=== PATIENT | female | born 1940 | race Caucasian/White ===

== ENCOUNTER 2018-11-07 12:12 | Inpatient (IN) | payer MEDICAID ==
[2018-11-07] MEDS: ACETAMINOPHEN 500 MG TAB PO (14:32)
[2018-11-07 14:46] LABS: ADD MAN DIFF? NO
[2018-11-07 14:48] LABS: WHITE BLOOD COUNT 6.3 10^3/ul (4.8-10.8)
[2018-11-07 14:48] LABS: BASOPHIL # 0.1 10^3/ul (0.0-0.1); BASOPHILS % 0.8 % (0.0-2.0); EOSINOPHILS # 0.1 10^3/ul (0.0-0.5); EOSINOPHILS % 1.4 % (0.0-7.0); HEMATOCRIT 39.4 % (37.0-47.0); HEMOGLOBIN 13.1 g/dl (12.0-16.0); LYMPHOCYTES # 1.6 10^3/ul (0.8-2.9); LYMPHOCYTES % 25.4 % (15.0-51.0); MEAN CORPUSCULAR HEMOGLOBIN 30.5 pg (29.0-33.0); MEAN CORPUSCULAR HGB CONC 33.2 g/dl (32.0-37.0); MEAN CORPUSCULAR VOLUME 91.8 fl (82.0-101.0); MEAN PLATELET VOLUME 10.9 fl (7.4-10.4); MONOCYTE # 0.7 10^3/ul (0.3-0.9); MONOCYTES % 10.8 % (0.0-11.0); NEUTROPHIL # 3.8 10^3/ul (1.6-7.5); NEUTROPHILS % 61.3 % (39.0-77.0); PLATELET COUNT 321 10^3/UL (140-415); RED BLOOD COUNT 4.29 10^6/ul (4.20-5.40); RED CELL DISTRIBUTION WIDTH 16.1 % (11.5-14.5)
[2018-11-07 14:56] LABS: ADD UMIC NO; UR ASCORBIC ACID 20 mg/dL (NEGATIVE); UR BILIRUBIN (Dip) 2+ mg/dL (NEGATIVE); UR BLOOD (Dip) NEGATIVE (NEGATIVE); UR CLARITY CLEAR (CLEAR); UR COLOR AMBER (YELLOW); UR GLUCOSE (Dip) NEGATIVE (NEGATIVE); UR KETONES (Dip) NEGATIVE (NEGATIVE); UR LEUKOCYTE ESTERASE (Dip) NEGATIVE Leu/ul (NEGATIVE); UR NITRITE (Dip) NEGATIVE (NEGATIVE); UR SPECIFIC GRAVITY (Dip) 1.023 (1.003-1.030); UR TOTAL PROTEIN (Dip) NEGATIVE (NEGATIVE); UR UROBILINOGEN (Dip) 2+ mg/dL (NEGATIVE)
[2018-11-07 15:09] LABS: ALANINE AMINOTRANSFERASE 571 IU/L (13-69); ALBUMIN 4.2 g/dl (3.3-4.9); ALBUMIN/GLOBULIN RATIO 0.85; ALKALINE PHOSPHATASE 430 IU/L (42-121); ANION GAP 11 (5-13); ASPARTATE AMINO TRANSFERASE 341 IU/L (15-46); BILIRUBIN,INDIRECT 1.6 mg/dl (0-1.1); BILIRUBIN,TOTAL 8.9 mg/dl (0.2-1.3); BLOOD UREA NITROGEN 21 mg/dl (7-20); CALCIUM 10.3 mg/dl (8.4-10.2); CARBON DIOXIDE 25 mmol/L (21-31); CHLORIDE 102 mmol/L (97-110); CREATININE 0.76 mg/dl (0.44-1.00); GLUCOSE 134 mg/dl (70-220); LIPASE 1408 U/L (23-300); POTASSIUM 4.3 mmol/L (3.5-5.1); SODIUM 138 mmol/L (135-144); TOTAL PROTEIN 9.1 g/dl (6.1-8.1)
[2018-11-07] MEDS ORDERED: hydrALAzine 20 MG INJ IV (19:00)
[2018-11-07] MEDS ORDERED: ACETAMINOPHEN 325 MG TAB PO (19:00)
[2018-11-07] MEDS ORDERED: NACL 0.9% 3 ML SYG IV (19:00)
[2018-11-07] MEDS ORDERED: NITROGLYCERIN (SL) 0.4 MG TAB SL (19:00)
[2018-11-07] MEDS ORDERED: ALBUTEROL/IPRATROPIUM (NEB) 3 ML AMP HHN (19:00)
[2018-11-07] MEDS ORDERED: ONDANSETRON 4 MG INJ IV (19:00)
[2018-11-07] MEDS ORDERED: DOCUSATE SODIUM 100 MG CAP PO (19:00)
[2018-11-07] MEDS ORDERED: morphine 2 MG INJ IV (19:00)
[2018-11-07] MEDS ORDERED: LORAZEPAM 2 MG INJ IV (19:00)
[2018-11-07] MEDS ORDERED: MAGNESIUM HYDROXIDE 30ML CUP PO (19:00)
[2018-11-07 19:33] LABS: INR 0.84; PROTIME 11.6 Sec (11.9-14.9); PT RATIO 0.9
[2018-11-07 19:34] LABS: PARTIAL THROMBOPLASTIN TIME 36.2 Sec (23.0-35.0)
[2018-11-07 19:54] LABS: FREE T4 (FREE THYROXINE) 1.36 ng/dl (0.78-2.44)
[2018-11-07] MEDS: SOD CHLORIDE 0.45% 1,000 ML IV (20:03)
[2018-11-07] MEDS: PIPER-TAZO 3.375 GM IV (PMX) 100 ML IVPB (23:49)
[2018-11-08] MEDS ORDERED: DIPHENHYDRAMINE 25 MG CAP PO (01:00)
[2018-11-08] MEDS: PANTOPRAZOLE (EC) 40 MG TAB PO (05:33)
[2018-11-08] MEDS: HYDROCODONE/APAP (5/325) TAB PO (05:34)
[2018-11-08] MEDS: PIPER-TAZO 3.375 GM IV (PMX) 100 ML IVPB ×3 (05:34→17:37)
[2018-11-08 06:43] LABS: ADD MAN DIFF? NO
[2018-11-08 06:45] LABS: WHITE BLOOD COUNT 7.1 10^3/ul (4.8-10.8)
[2018-11-08 06:45] LABS: BASOPHILS % 0.6 % (0.0-2.0); EOSINOPHILS % 0.6 % (0.0-7.0); HEMATOCRIT 35.3 % (37.0-47.0); LYMPHOCYTES # 0.9 10^3/ul (0.8-2.9); LYMPHOCYTES % 13.3 % (15.0-51.0); MEAN CORPUSCULAR HEMOGLOBIN 30.8 pg (29.0-33.0); MEAN CORPUSCULAR VOLUME 90.7 fl (82.0-101.0); MEAN PLATELET VOLUME 11.6 fl (7.4-10.4); MONOCYTE # 0.4 10^3/ul (0.3-0.9); MONOCYTES % 5.8 % (0.0-11.0); NEUTROPHIL # 5.6 10^3/ul (1.6-7.5); NEUTROPHILS % 79.3 % (39.0-77.0); PLATELET COUNT 286 10^3/UL (140-415); RED BLOOD COUNT 3.89 10^6/ul (4.20-5.40); RED CELL DISTRIBUTION WIDTH 16.3 % (11.5-14.5)
[2018-11-08 07:05] LABS: ALANINE AMINOTRANSFERASE 481 IU/L (13-69); ALBUMIN 3.7 g/dl (3.3-4.9); ALKALINE PHOSPHATASE 417 IU/L (42-121); ANION GAP 11 (5-13); ASPARTATE AMINO TRANSFERASE 285 IU/L (15-46); BILIRUBIN,INDIRECT 1.9 mg/dl (0-1.1); BILIRUBIN,TOTAL 10.8 mg/dl (0.2-1.3); BLOOD UREA NITROGEN 19 mg/dl (7-20); CALCIUM 9.8 mg/dl (8.4-10.2); CARBON DIOXIDE 22 mmol/L (21-31); CHLORIDE 105 mmol/L (97-110); CREATININE 0.72 mg/dl (0.44-1.00); GLUCOSE 126 mg/dl (70-220); MAGNESIUM 2.1 mg/dl (1.7-2.5); PHOSPHORUS 3.9 mg/dl (2.5-4.9); POTASSIUM 4.5 mmol/L (3.5-5.1); SODIUM 138 mmol/L (135-144); TOTAL PROTEIN 7.6 g/dl (6.1-8.1)
[2018-11-08 07:07] LABS: HEMOGLOBIN A1C 5.9 % (0-5.9)
[2018-11-08 07:12] LABS: HDL CHOLESTEROL 33 mg/dl (33-92); LDL CHOLESTEROL,CALCULATED 220 mg/dl; TRIGLYCERIDES 230 mg/dl (0-149)
[2018-11-08 07:12] LABS: CHOLESTEROL 299 mg/dl (100-200)
[2018-11-08] MEDS: SOD CHLORIDE 0.45% 1,000 ML IV ×2 (10:20→11:56)
[2018-11-08 11:45] LABS: CARCINOEMBRYONIC ANTIGEN 5.4 ng/ml (0.0-5.0)
[2018-11-08 12:57] LABS: HAAIG REFLEX REFLEX FILED
[2018-11-08 13:43] LABS: HEPATITIS B SURFACE ANTIGEN NEGATIVE (NEGATIVE)
[2018-11-08 14:01] LABS: HEPATITIS C VIRAL ANTIBODY NEGATIVE (NEGATIVE)
[2018-11-08 14:20] LABS: HEPATITIS B CORE ANTIBODY NEGATIVE (NEGATIVE)
[2018-11-08] MEDS: ACETAMINOPHEN 325 MG TAB PO (15:14)
[2018-11-08] MEDS: INDOMETHACIN 50 MG SUPP PR (17:00)
[2018-11-09] MEDS: PIPER-TAZO 3.375 GM IV (PMX) 100 ML IVPB ×5 (00:16→23:57)
[2018-11-09] MEDS: SOD CHLORIDE 0.45% 1,000 ML IV ×2 (03:35→18:55)
[2018-11-09] MEDS: PANTOPRAZOLE (EC) 40 MG TAB PO (05:32)
[2018-11-09 07:06] LABS: ADD MAN DIFF? NO
[2018-11-09 07:12] LABS: WHITE BLOOD COUNT 7.5 10^3/ul (4.8-10.8)
[2018-11-09 07:12] LABS: BASOPHIL # 0.1 10^3/ul (0.0-0.1); BASOPHILS % 0.7 % (0.0-2.0); EOSINOPHILS # 0.1 10^3/ul (0.0-0.5); EOSINOPHILS % 0.9 % (0.0-7.0); HEMATOCRIT 38.5 % (37.0-47.0); HEMOGLOBIN 12.8 g/dl (12.0-16.0); LYMPHOCYTES # 1.4 10^3/ul (0.8-2.9); LYMPHOCYTES % 19.1 % (15.0-51.0); MEAN CORPUSCULAR HEMOGLOBIN 30.2 pg (29.0-33.0); MEAN CORPUSCULAR HGB CONC 33.2 g/dl (32.0-37.0); MEAN CORPUSCULAR VOLUME 90.8 fl (82.0-101.0); MEAN PLATELET VOLUME 11.6 fl (7.4-10.4); MONOCYTE # 0.5 10^3/ul (0.3-0.9); MONOCYTES % 6.4 % (0.0-11.0); NEUTROPHIL # 5.4 10^3/ul (1.6-7.5); NEUTROPHILS % 72.4 % (39.0-77.0); PLATELET COUNT 338 10^3/UL (140-415); RED BLOOD COUNT 4.24 10^6/ul (4.20-5.40); RED CELL DISTRIBUTION WIDTH 16.5 % (11.5-14.5)
[2018-11-09 07:35] LABS: ANION GAP 15 (5-13); BLOOD UREA NITROGEN 17 mg/dl (7-20); CALCIUM 10.1 mg/dl (8.4-10.2); CARBON DIOXIDE 18 mmol/L (21-31); CHLORIDE 104 mmol/L (97-110); CREATININE 0.82 mg/dl (0.44-1.00); GLUCOSE 97 mg/dl (70-220); POTASSIUM 4.1 mmol/L (3.5-5.1); SODIUM 137 mmol/L (135-144)
[2018-11-09] MEDS ORDERED: IOHEXOL 300MG/ML 30 ML BTL (11:38)
[2018-11-09] MEDS ORDERED: CEFAZOLIN 1 GM INJ (12:24)
[2018-11-09] MEDS ORDERED: ROCURONIUM 50 MG INJ (12:24)
[2018-11-09] MEDS ORDERED: FENTAnyl 50 MCG/ML VIAL (12:24)
[2018-11-09] MEDS ORDERED: PROPOFOL 20 ML (12:24)
[2018-11-09] MEDS ORDERED: MIDAZOLAM 1 MG/ML 2 ML INJ (12:24)
[2018-11-09] MEDS ORDERED: hydrALAzine 20 MG INJ (12:42)
[2018-11-09] MEDS ORDERED: ONDANSETRON 4 MG INJ (12:42)
[2018-11-09] MEDS ORDERED: METOCLOPRAMIDE 10 MG INJ (12:42)
[2018-11-09] MEDS ORDERED: DEXAMETHASONE 4 MG/ML 5 ML INJ (12:42)
[2018-11-09] MEDS ORDERED: SUGAMMADEX SODIUM 200 MG/2 ML VIAL IV (12:55)
[2018-11-09] MEDS ORDERED: ONDANSETRON 4 MG INJ IV (13:00)
[2018-11-09] MEDS ORDERED: MEPERIDINE 25 MG INJ IV (13:00)
[2018-11-09] MEDS ORDERED: METOCLOPRAMIDE 10 MG INJ IV (13:00)
[2018-11-09] MEDS ORDERED: ALBUTEROL 0.083% (NEB) 2.5 MG/3 ML AMP HHN (13:00)
[2018-11-09] MEDS ORDERED: EPHEDrine 25 MG/5 ML SYG IV (13:00)
[2018-11-09] MEDS ORDERED: HYDROmorphONE 1 MG/5 ML IV SYRINGE IV ×2 (13:00)
[2018-11-09] MEDS ORDERED: LABETALOL HCL 20MG INJ IV (13:00)
[2018-11-09] MEDS ORDERED: FENTAnyl 50 MCG/ML VIAL IV ×2 (13:00)
[2018-11-09] MEDS ORDERED: DIPHENHYDRAMINE 50 MG INJ IV (13:00)
[2018-11-09] MEDS ORDERED: hydrALAzine 20 MG INJ IV (13:00)
[2018-11-09] MEDS: BARIUM SULF 2% 450 ML BTL (BERRY SMOOTHIE) PO (13:30)
[2018-11-09] MEDS: ONDANSETRON 4 MG INJ IV (14:15)
[2018-11-10] MEDS: PANTOPRAZOLE (EC) 40 MG TAB PO (06:02)
[2018-11-10] MEDS: PIPER-TAZO 3.375 GM IV (PMX) 100 ML IVPB ×2 (06:02→12:28)
[2018-11-10 07:17] LABS: ADD MAN DIFF? NO
[2018-11-10 07:21] LABS: WHITE BLOOD COUNT 10.6 10^3/ul (4.8-10.8)
[2018-11-10 07:21] LABS: BASOPHILS % 0.1 % (0.0-2.0); HEMATOCRIT 33.1 % (37.0-47.0); HEMOGLOBIN 11.3 g/dl (12.0-16.0); LYMPHOCYTES # 1.1 10^3/ul (0.8-2.9); MEAN CORPUSCULAR HEMOGLOBIN 30.7 pg (29.0-33.0); MEAN CORPUSCULAR HGB CONC 34.1 g/dl (32.0-37.0); MEAN CORPUSCULAR VOLUME 89.9 fl (82.0-101.0); MEAN PLATELET VOLUME 11.9 fl (7.4-10.4); MONOCYTE # 0.5 10^3/ul (0.3-0.9); MONOCYTES % 4.5 % (0.0-11.0); NEUTROPHILS % 84.8 % (39.0-77.0); PLATELET COUNT 297 10^3/UL (140-415); RED BLOOD COUNT 3.68 10^6/ul (4.20-5.40); RED CELL DISTRIBUTION WIDTH 16.3 % (11.5-14.5)
[2018-11-10 07:44] LABS: ANION GAP 8 (5-13); BLOOD UREA NITROGEN 16 mg/dl (7-20); CALCIUM 9.6 mg/dl (8.4-10.2); CARBON DIOXIDE 23 mmol/L (21-31); CHLORIDE 105 mmol/L (97-110); CREATININE 0.71 mg/dl (0.44-1.00); GLUCOSE 170 mg/dl (70-220); POTASSIUM 4.5 mmol/L (3.5-5.1); SODIUM 136 mmol/L (135-144)
[2018-11-10 11:11] LABS: ALANINE AMINOTRANSFERASE 365 IU/L (13-69); ALBUMIN 3.7 g/dl (3.3-4.9); ALKALINE PHOSPHATASE 416 IU/L (42-121); ASPARTATE AMINO TRANSFERASE 202 IU/L (15-46); BILIRUBIN,INDIRECT 1.9 mg/dl (0-1.1); BILIRUBIN,TOTAL 4.1 mg/dl (0.2-1.3); TOTAL PROTEIN 7.4 g/dl (6.1-8.1)
[2018-11-10] MEDS: SOD CHLORIDE 0.45% 1,000 ML IV (12:54)
== END 2018-11-10 17:13 | disposition home or self-care (01) | DRG 445 ==
LOC: FTE 12:12 → PP2 18:44
PROC: 0FC98ZZ Extirpation of Matter from Common Bile Duct, Via Natural or Artificial Opening Endoscopic (ICD-10-PCS; principal; 2018-11-09 12:00)
DX: K80.51 Calculus of bile duct without cholangitis or cholecystitis with obstruction (principal); B17.9 Acute viral hepatitis, unspecified; R17 Unspecified jaundice; E78.5 Hyperlipidemia, unspecified; J45.909 Unspecified asthma, uncomplicated
CPT/HCPCS: 36415; 74160; 74176; 74181; 74182; 74330; 76705; 80048; 80053; 80061; 80076; 81003; 82378; 83036; 83690; 83735; 84100; 84439; 84443; 85025; 85610; 85730; 86301; 86704; 86709; 86803; 87340; 97161; 97166; 99285-25